=== PATIENT | female | born 1975 | race Caucasian/White ===

== ENCOUNTER 2017-09-14 08:17 | Emergency (ER) | payer MEDICAID | END 2017-09-14 09:45 | disposition home or self-care (01) | LOC: FTE 08:17 | DX: L25.9 Unspecified contact dermatitis, unspecified cause (principal) | CPT/HCPCS: 99283; Z7502 ==

== ENCOUNTER 2017-12-03 10:39 | Emergency (ER) | payer MEDICAID | END 2017-12-03 11:04 | disposition home or self-care (01) | LOC: FTE 10:39 → E/R 11:04 | DX: L25.9 Unspecified contact dermatitis, unspecified cause (principal) | CPT/HCPCS: 99283 ==

== ENCOUNTER 2018-02-06 22:15 | Emergency (ER) | payer MEDICAID ==
[2018-02-07] MEDS: METHYLPREDNISOLONE 125 MG INJ IM (01:50)
[2018-02-07] MEDS: DIPHENHYDRAMINE 50 MG INJ IM (01:50)
== END 2018-02-07 02:10 | disposition home or self-care (01) ==
LOC: FTE 22:15
DX: B86 Scabies (principal)
CPT/HCPCS: 96372; 99284-25